=== PATIENT | male | born 1945 | race Caucasian/White ===

== ENCOUNTER 2022-04-23 20:11 | Inpatient (IN) | payer OTHER ==
[~2022-04-23] VITALS: Ht 190.5 cm; Wt 112.0 kg
[~2022-04-23 20:11] MED LIST: BACITO TOP; Flomax0.4 MG PO; Neurontin 100100 MG PO; Roxicodone5 MG PO
[2022-04-23 22:39] LABS: BASOPHILS ABSOLUTE AUTO 0.04 K/mm3 (0.00-0.23); BASOPHILS PERCENT AUTO 0 % (0-2); EOSINOPHILS ABSOLUTE AUTO 0.08 K/mm3 (0.00-0.68); EOSINOPHILS PERCENT AUTO 1 % (0-6); Hematocrit 32.6 % (37.0-53.0); Hemoglobin 11.4 g/dL (13.5-17.5); IMMATURE GRAN ABSOLUTE AUTO 0.06 K/mm3 (0.00-0.10); IMMATURE GRAN PERCENT AUTO 1 % (0-1); LYMPHOCYTES ABSOLUTE AUTO 0.84 K/mm3 (0.84-5.20); LYMPHOCYTES PERCENT AUTO 9 % (21-46); MONOCYTES ABSOLUTE AUTO 0.51 K/mm3 (0.16-1.47); MONOCYTES PERCENT AUTO 6 % (4-13); Mean Corpuscular HGB 30.6 pg (26.0-34.0); Mean Corpuscular Volume 88 fL (80-100); NEUTROPHILS ABSOLUTE AUTO 7.46 K/mm3 (1.96-9.15); NEUTROPHILS PERCENT AUTO 83 % (41-73); Platelet Count 246 K/mm3 (150-400); RDW Coefficient Variation 14.3 % (11.7-14.2); Red Blood Cell Count 3.72 M/mm3 (4.30-5.90); White Blood Cell Count 8.99 K/mm3 (4.00-11.30)
[2022-04-23 22:52] LABS: Albumin, Blood 3.5 g/dL (3.4-5.0); Albumin/Globulin Ratio 1.3 (0.8-1.8); Bilirubin, Total 1.2 mg/dL (0.1-1.0); Bun/Creatinine Ratio 10.9 (12.0-20.0); Calcium, Blood 8.1 mg/dL (8.5-10.1); Creatinine, Blood 0.83 mg/dL (0.60-1.20); Globulin, Blood 2.7 g/dL (2.2-4.0); Total Protein, Blood 6.2 g/dL (6.4-8.2)
[2022-04-23 23:31] LABS: Thyroid Stimulating Hormone 3.22 uIU/mL (0.360-4.800)
[2022-04-23 23:32] LABS: Source, Urine Foley catheter
[2022-04-23 23:38] LABS: Bilirubin, Urine Neg (Neg); Blood, Urine 4+ (Neg); Glucose Qualitative, Urine Neg (Neg); Ketones, Urine 1+ (Neg); Leukocyte Esterase, Urine Neg (Neg); Nitrite, Urine Neg (Neg); Protein, Urine 4+ (Neg); Specific Gravity, Urine 1.005 (1.003-1.022); Urobilinogen, Urine NORM (Normal)
[2022-04-23 23:44] LABS: Appearance, Urine Turbid (Clear); Color, Urine Red (P-Yellow)
[2022-04-23 23:45] LABS: Amorphous Heavy (0-Heavy); Bacteria Few /hpf; Red Blood Cells, Urine TNTC /hpf (0-2); Squamous Epithelial Cells Few /hpf (Few)
[2022-04-23 23:57] LABS: U Amphetamine Screen Not Detected; U Barbituate Screen Not Detected; U Benzodiazapine Screen Not Detected; U Buprenorphine Screen Not Detected; U Cannabinoids Screen Not Detected; U Cocaine Screen Not Detected; U Methadone Screen Not Detected; U Methamphetamine Screen Not Detected; U Opiates Screen Not Detected; U Oxycodone Screen Not Detected; U Phencyclidine Screen Not Detected; U Propoxyphene Screen Not Detected
[2022-04-24 03:02] LABS: Bun/Creatinine Ratio 10.3 (12.0-20.0); Calcium, Blood 7.7 mg/dL (8.5-10.1); Creatinine, Blood 0.77 mg/dL (0.60-1.20); Potassium, Blood 3.2 mmol/L (3.5-5.5)
--- NOTE | 2022-04-24 05:02 | NUR ---
ADMISSION REPORT RECIEVED FROM ER NURSE, PATIENT ARRIVED TO PCU 7. PATIENT ABLE TO SCOOT SELF OVER TO PCU BED WITH MINIMAL ASSISTANCE. PATIENT ON RA WITH O2 SAT >90%. PATIENT DENIES CHEST PAIN OR SOB. VSS. PATIENT ORIENTED TO SELF, AND IS ABLE TO STATE WHAT BUILDING WE ARE IN. UNABLE TO ANSWER ANY OTHER ORIENTATION QUESTIONS. PLEASANTLY CONFUSED. GALLARDO IN PLACE DRAINING DARK RED URINE. BED ALARM ON FOR SAFETY. CALL LIGHT IN REACH.
--- NOTE | 2022-04-24 07:12 | NUR ---
SHIFT SUMMARY GALLARDO IRRIGATED D/T CLOTTING OFF AND NOT DRAINING. ABOUT 1100 OUT IN GALLARDO. DRAINING DARK RED URINE WITH SOME CLOTS. NO OTHER CHANGES SINCE ADMISSION. BED ALARM ON. WILL REPORT TO DAY SHIFT RN.
[2022-04-24 09:25] LABS: BASOPHILS ABSOLUTE AUTO 0.01 K/mm3 (0.00-0.23); BASOPHILS PERCENT AUTO 0 % (0-2); EOSINOPHILS ABSOLUTE AUTO 0.06 K/mm3 (0.00-0.68); EOSINOPHILS PERCENT AUTO 1 % (0-6); Hematocrit 36.5 % (37.0-53.0); Hemoglobin 12.4 g/dL (13.5-17.5); IMMATURE GRAN ABSOLUTE AUTO 0.02 K/mm3 (0.00-0.10); IMMATURE GRAN PERCENT AUTO 0 % (0-1); LYMPHOCYTES ABSOLUTE AUTO 0.81 K/mm3 (0.84-5.20); LYMPHOCYTES PERCENT AUTO 12 % (21-46); MONOCYTES ABSOLUTE AUTO 0.58 K/mm3 (0.16-1.47); MONOCYTES PERCENT AUTO 8 % (4-13); Mean Corpuscular HGB 29.8 pg (26.0-34.0); Mean Corpuscular Volume 88 fL (80-100); Mean Platelet Volume 9.3 fL (9.1-12.4); NEUTROPHILS ABSOLUTE AUTO 5.57 K/mm3 (1.96-9.15); NEUTROPHILS PERCENT AUTO 79 % (41-73); Platelet Count 227 K/mm3 (150-400); RDW Coefficient Variation 14.2 % (11.7-14.2); RDW Standard Deviation 45.9 fL (35.1-46.3); Red Blood Cell Count 4.16 M/mm3 (4.30-5.90); White Blood Cell Count 7.05 K/mm3 (4.00-11.30)
[2022-04-24] MEDS ORDERED: ALBU90OI INH (09:27)
[2022-04-24] MEDS ORDERED: LACT PO (09:29)
[2022-04-24] MEDS ORDERED: STIOLTO RESPIMAT4 G1 INH (09:29)
[2022-04-24 09:45] LABS: Albumin, Blood 3.4 g/dL (3.4-5.0); Albumin/Globulin Ratio 1.1 (0.8-1.8); Bun/Creatinine Ratio 10.9 (12.0-20.0); Calcium, Blood 8.6 mg/dL (8.5-10.1); Creatinine, Blood 0.74 mg/dL (0.60-1.20); Potassium, Blood 3.9 mmol/L (3.5-5.5); Total Protein, Blood 6.4 g/dL (6.4-8.2)
[2022-04-24] MEDS ORDERED: ALFU10 PO (11:32)
[2022-04-24 15:26] LABS: Bun/Creatinine Ratio 12.2 (12.0-20.0); Calcium, Blood 8.7 mg/dL (8.5-10.1); Creatinine, Blood 0.82 mg/dL (0.60-1.20); Potassium, Blood 4.1 mmol/L (3.5-5.5)
[2022-04-24 16:19] LABS: Hematocrit 36.8 % (37.0-53.0); Hemoglobin 12.2 g/dL (13.5-17.5)
--- NOTE | 2022-04-24 16:32 | NUR ---
END OF SHIFT SUMMARY: PATIENT HAS BEEN IMPROVING IN MENTATION, CURRELNTY 3 MOST OF THE TIME, CAN BE SLIGHTLY IMPULSIVE AND FORGETFUL, IS ABLE TO MAKE NEEDS KNOWN. DENIES CHEST PAIN OR PRESSURE HR CURRNELTY 80-90'S NO SIGN OF ACUTE DISTRESS. PATIENT HAS BEEN ON RA WITH SPO2 >97% OF NOTE PATIENT HAD THEIR URINARY CATHETER CLOT AND WAS REPLACED, UNABLE TO INSERT THE ONLY [address] IN THE HOSPITAL DUE TO SIZE AND ANATOMY. PATIENT TOLERATED WELL. PATIENT HAS BEEN RECIEVING IRRIGATION OF 50-100mL Q1 OR PRN FROM THIS RN AFTER. PATIENT WITH LARGE OUTPUT THAT IS STILL VERY DARK RED. PATIENT HAS BEEN PLESANT. REGULAR DIET. HOME MEDICATIONS RECONCILLED WITH . WILL CONTINUE TO MONITOR UNTIL SHIFT SUMMARY. NO SIGN OF ACUTE RESPIRATORY DISTRESS. H
[2022-04-24 21:16] LABS: Bun/Creatinine Ratio 11.8 (12.0-20.0); Calcium, Blood 8.3 mg/dL (8.5-10.1); Creatinine, Blood 0.76 mg/dL (0.60-1.20); Potassium, Blood 3.8 mmol/L (3.5-5.5)
--- NOTE | 2022-04-24 23:16 | NUR ---
UPDATE CALL PLACED TO RESIDENT REGARDING AMOUNT OF BLOOD/CLOTS COMING FROM GALLARDO. IRRIGATIONS BEING DONE Q45 MINUTES TO Q1 HR. GALLARDO CONTINUES TO GET CLOGGED WITH CLOTS ALMOST IMMEDIATELY AFTER IRRIGATION IS COMPLETE. 3 WAY GALLARDO ATTEMPTED ON DAY SHIFT BUT D/T PATIENT'S ANATOMY, 3 WAY INSERTION NOT POSSIBLE AT THIS TIME. PER RESIDENT, BECAUSE PATIENT IS HEMODYNAMICALLY STABLE, PATIENT IS NOT A CANIDATE FOR EMERGENCY TRANSFER FOR UROLOGY TO PLACE GALLARDO. ORDERS FOR INCREASED DOSE OF TAMSULOSIN, AND ADDITIONAL LAB DRAWS FOR HGB/HCT. VITALS STABLE AT THIS TIME.
--- NOTE | 2022-04-24 23:36 | NUR ---
UPDATE CALL PLACED TO ALICIA VASQUEZ WITH UPDATE AND CONCERNS IN PREVIOUS NOTE. NO NEW ORDERS RECIEVED. PLAN IS TO CONTINUE TO IRRIGATE Q1, MONITOR VITAL SIGNS AND WATCH H/H.
[2022-04-24 23:56] LABS: Hematocrit 32.3 % (37.0-53.0); Hemoglobin 11.1 g/dL (13.5-17.5)
[2022-04-25 03:54] LABS: Hematocrit 31.9 % (37.0-53.0); Hemoglobin 10.5 g/dL (13.5-17.5)
[2022-04-25 04:17] LABS: Bun/Creatinine Ratio 11.8 (12.0-20.0); Calcium, Blood 8.7 mg/dL (8.5-10.1); Creatinine, Blood 0.85 mg/dL (0.60-1.20); Potassium, Blood 3.5 mmol/L (3.5-5.5)
--- NOTE | 2022-04-25 06:36 | NUR ---
SHIFT SUMMARY PATIENT ALERT, ORIENTED x2-3, MENTATION IS IMPROVING SINCE ADMISSION. VSS, PATIENT REMAINS ON RA WITH O2 SAT >90%. GALLARDO REMAINS IN PLACE DRAINING DARK RED BLOOD/URINE WITH CLOTS. [id number] IRRIGATION BEING COMPLETED. LIQUID IN GALLARDO DRAINAGE BAG LIGHT CRANBERRY JUICE DURING IRRIGATION, NEVER GETS FULLY CLEAR. PATIENT VERY FRUSTRATED WITH THIS RN, D/T NOT BEING ABLE TO GET REST/SLEEP AND STAFF CONSTANTLY IN HIS ROOM. PATIENT PULLED OUT 2 IVs AND RIPPED OFF TELE AT ONE POINT STATING "I'M GOING TO LEAVE, I'M TIRED OF BEING TANGLED UP IN ALL THESE WIRES AND I PULLED THEM OFF". ICU FOOD AND BEVERAGE ASSISTANT ATTEMPTED TO PLACE POWERGLIDE BUT WAS UNSUCCESSFUL. SEE PREVIOUS NOTES FOR UPDATES/CONCERNS. NO OTHER CHANGES THIS SHIFT, WILL REPORT TO DAY SHIFT RN.
[2022-04-25 08:22] LABS: Hematocrit 31.8 % (37.0-53.0); Hemoglobin 10.6 g/dL (13.5-17.5); Mean Corpuscular HGB 30.5 pg (26.0-34.0); Mean Corpuscular HGB Conc 33.3 g/dL (31.5-36.5); Mean Corpuscular Volume 91 fL (80-100); Mean Platelet Volume 9.3 fL (9.1-12.4); Platelet Count 282 K/mm3 (150-400); RDW Coefficient Variation 15.1 % (11.7-14.2); RDW Standard Deviation 50.6 fL (35.1-46.3); Red Blood Cell Count 3.48 M/mm3 (4.30-5.90); White Blood Cell Count 11.86 K/mm3 (4.00-11.30)
[2022-04-25 08:33] LABS: International Normalized Ratio 1.09; Prothrombin Time Results 11.4 Sec (9.7-11.5)
[2022-04-25 08:42] LABS: Bun/Creatinine Ratio 12.2 (12.0-20.0); Calcium, Blood 8.7 mg/dL (8.5-10.1); Creatinine, Blood 0.98 mg/dL (0.60-1.20); Potassium, Blood 3.8 mmol/L (3.5-5.5)
[2022-04-25] MEDS ORDERED: MIRALAX11910 PO (14:32)
--- NOTE | 2022-04-25 18:26 | NUR ---
END OF SHIFT: PATIENT HAS BEEN AFEBRILE, DENIES PAIN, MENTATION HAS BEEN MORE PLEASANT AND LESS ANXIOUS TODAY. PATIENT DENIES CHEST PAIN/PRESSURE, OR SOB. PATIENT HAS BEEN ON RA SPO2>94%. PATIENT HAS A ST POWERGLIDE IN THE LEFT UPPER ARM. PLACED BY SENIOR [employer] PROGRAMMER. PATIENT HAS BEEN RECIEVING LR X 1 DAY AT 150. PATIENT DID HAVE AN INFILTRATION TO THE GORGE, SWELLING HAS REDUCED SIGNIFICANTLY REMOVAL. PATIENT HAS BEEN HAVING A VERY LARGE AMOUNT OF DARK RED BLOOD AND CLOTS OUT OF HIS GALLARDO CATHETER UNTIL THIS EVENING AROUND 1700. PATIENT CATHETER IRRIGATION HAS BEEN LESSENING THE AMOUNT OF CLOTS AND DECREASED REDNESS. IN TOTAL PATIENT HAD 5.5L OF BLADDER IRRIGATION FROM THIS RN. PATIENT RECIEVED Q2 IRRIGATIONS IF NOT SOONER. PATIENT HAD SOFTER BLOOD PRESSURES FIRST THING THIS MORNING. H&H STABLE AT THIS TIME AT UPPER 10'S CHETNA IN THE MORNING PER PROVIDER. HOME INHALERS ADDED TO MED LIST. PATIENT IN BETTER MOOD TODAY. NO CONCERNS FROM THIS RN AT THIS TIME. WILL CONTINUE TO MONITOR UNTIL SHIFT CHANGE.
[2022-04-26 04:37] LABS: Hematocrit 26.1 % (37.0-53.0); Hemoglobin 8.4 g/dL (13.5-17.5); Mean Corpuscular HGB 29.9 pg (26.0-34.0); Mean Corpuscular HGB Conc 32.2 g/dL (31.5-36.5); Mean Corpuscular Volume 93 fL (80-100); Mean Platelet Volume 9.6 fL (9.1-12.4); Platelet Count 219 K/mm3 (150-400); RDW Coefficient Variation 15.2 % (11.7-14.2); RDW Standard Deviation 51.8 fL (35.1-46.3); Red Blood Cell Count 2.81 M/mm3 (4.30-5.90); White Blood Cell Count 8.71 K/mm3 (4.00-11.30)
[2022-04-26 04:56] LABS: Bun/Creatinine Ratio 9.9 (12.0-20.0); Calcium, Blood 7.9 mg/dL (8.5-10.1); Creatinine, Blood 0.91 mg/dL (0.60-1.20); Potassium, Blood 3.7 mmol/L (3.5-5.5)
--- NOTE | 2022-04-26 06:06 | NUR ---
SHIFT SUMMARY PATIENT ALERT, ANSWERS QUESTIONS APPROPRIATELY BUT CAN BE FORGETFUL AT TIMES. VSS, PATIENT REMAINS ON RA WITH O2 SAT >90%. PATIENT CONTINUES TO DENY CHEST PAIN OR SHORTNESS OF BREATH. GALLARDO IN PLACE DRAINKING PINK TINGED OUTPUT. INTERMITTENT IRRIGATION DONE OVER THE NIGHT, AND MINIMAL CLOTS ARE DRAINING DURING IRRIGATION. GALLARDO IS ABLE TO FREE FLOW, CHECKED APPROXIMATELY Q2 D/T SUCH IMPROVEMENT SINCE PREVIOUS SHIFTS. NO OTHER SIGNIFICANT CHANGES THIS, WILL REPORT TO DAY SHIFT RN.
[2022-04-26 12:28] LABS: Hematocrit 25.6 % (37.0-53.0); Hemoglobin 8.4 g/dL (13.5-17.5)
[2022-04-26] MEDS ORDERED: Calcium Carbon500 MG PO (14:17)
--- NOTE | 2022-04-26 19:28 | NUR ---
DISCHARGE SUMMARY: PATIENT HAS BEEN THE MOST ALERT AND ORIENTED HE HAS BEEN SINCE ASSUMPTION OF THIS PATINET. PATIENT DENIES CHEST PAIN OR SOB AT REST OR WITH EXERTION. PATIENT IS ON RA DWANNELTY HAS A GALLARDO AND WILL BE DCISCHARGE WITH A GALLARDO TO PREVENT FURTHER TRAUMA WITH SELF CATHING. PATIENT AND WERE EDUCATED ON DISEASE PROCESS, TECHNIQUES, CARE, AND SIGNS OF INFECTION FOR > THAN 60 MINUTES. PATIENT WAS WHEELED OUT BY [facility] VIA WHEELCHAIR. POWERGLIDE WAS REMOVED FROM THE LEFT UPPER ARM, NO COMPLICATIONS IV IN TACT. PATIENT HASNO CONCERNS WILL AT THIS TIME
== END 2022-04-26 17:07 | disposition home or self-care (01) | DRG 640 ==
LOC: ER 20:11 → ERHOLD 04-24 03:45 → PCU 04-24 03:45
PROVIDERS: Emergency Medicine; Internal Medicine; Student in an Organized Health Care Education/Training Program; ADMIT Internal Medicine
DX: E87.1 Hypo-osmolality and hyponatremia (principal); G92.8 Other toxic encephalopathy; T83.83XA Hemorrhage due to genitourinary prosthetic devices, implants and grafts, initial encounter; I10 Essential (primary) hypertension; E03.9 Hypothyroidism, unspecified; I48.91 Unspecified atrial fibrillation; E86.1 Hypovolemia; N40.0 Benign prostatic hyperplasia without lower urinary tract symptoms; E87.8 Other disorders of electrolyte and fluid balance, not elsewhere classified; R31.9 Hematuria, unspecified; Z79.899 Other long term (current) drug therapy; Y84.6 Urinary catheterization as the cause of abnormal reaction of the patient, or of later complication, without mention of misadventure at the time of the procedure
CPT/HCPCS: 36415; 51700; 51702; 51703; 70450; 74176; 80048; 80053; 81001; 82947; 83880; 83930; 84443; 84484; 85014; 85018; 85025; 85027; 85610; 86850; 86900; 86901; 87077; 87086; 87186; 93005; 93010; 94640; 94664; 94760; 96361-59; 96374-59; 99285-25; A9270; C1751; J2060; J2405; J3480; J7030; J7050; J7120

== ENCOUNTER 2022-04-27 00:33 | Emergency (ER) | payer OTHER ==
[~2022-04-27] VITALS: Ht 190.5 cm; Wt 102.1 kg
[~2022-04-27 00:33] MED LIST changes: +ALBU90OI INH; +ALFU10 PO; +Calcium Carbon500 MG PO; +LACT PO; +MIRALAX11910 PO; +STIOLTO RESPIMAT4 G1 INH
[2022-04-27 01:45] LABS: Source, Urine Foley catheter
[2022-04-27 02:15] LABS: Appearance, Urine Hazy (Clear); Bilirubin, Urine Neg (Neg); Blood, Urine 5+ (Neg); Color, Urine Yellow (P-Yellow); Glucose Qualitative, Urine Neg (Neg); Ketones, Urine Neg (Neg); Leukocyte Esterase, Urine 3+ (Neg); Nitrite, Urine Neg (Neg); Protein, Urine 2+ (Neg); Urobilinogen, Urine NORM (Normal)
[2022-04-27 02:38] LABS: Bacteria Many /hpf; Squamous Epithelial Cells Rare /hpf (Few)
== END 2022-04-27 03:28 | disposition home or self-care (01) ==
LOC: ER 00:33
PROVIDERS: Emergency Medicine
DX: T83.091A Other mechanical complication of indwelling urethral catheter, initial encounter (principal); Y84.6 Urinary catheterization as the cause of abnormal reaction of the patient, or of later complication, without mention of misadventure at the time of the procedure; N32.89 Other specified disorders of bladder
CPT/HCPCS: 51702; 51798; 81001; 87077; 87086; 87186; 99283-25

== ENCOUNTER 2022-06-25 11:57 | Inpatient (IN) | payer OTHER ==
[~2022-06-25] VITALS: Ht 188 cm; Wt 110.5 kg
[2022-06-25 12:45] LABS: BASOPHILS ABSOLUTE AUTO 0.03 K/mm3 (0.00-0.23); BASOPHILS PERCENT AUTO 0 % (0-2); EOSINOPHILS ABSOLUTE AUTO 0.01 K/mm3 (0.00-0.68); EOSINOPHILS PERCENT AUTO 0 % (0-6); Hematocrit 33.8 % (37.0-53.0); Hemoglobin 11.2 g/dL (13.5-17.5); IMMATURE GRAN ABSOLUTE AUTO 0.07 K/mm3 (0.00-0.10); IMMATURE GRAN PERCENT AUTO 0 % (0-1); LYMPHOCYTES ABSOLUTE AUTO 0.58 K/mm3 (0.84-5.20); LYMPHOCYTES PERCENT AUTO 3 % (21-46); MONOCYTES ABSOLUTE AUTO 0.94 K/mm3 (0.16-1.47); MONOCYTES PERCENT AUTO 5 % (4-13); Mean Corpuscular HGB 27.1 pg (26.0-34.0); Mean Corpuscular HGB Conc 33.1 g/dL (31.5-36.5); Mean Corpuscular Volume 82 fL (80-100); Mean Platelet Volume 9.4 fL (9.1-12.4); NEUTROPHILS PERCENT AUTO 91 % (41-73); Platelet Count 309 K/mm3 (150-400); RDW Coefficient Variation 14.3 % (11.7-14.2); RDW Standard Deviation 42.9 fL (35.1-46.3); Red Blood Cell Count 4.13 M/mm3 (4.30-5.90); White Blood Cell Count 18.73 K/mm3 (4.00-11.30)
[2022-06-25 13:01] LABS: Albumin, Blood 3.5 g/dL (3.4-5.0); Bilirubin, Total 1.2 mg/dL (0.1-1.0); Bun/Creatinine Ratio 15.2 (12.0-20.0); Calcium, Blood 8.3 mg/dL (8.5-10.1); Creatinine, Blood 0.99 mg/dL (0.60-1.20); Globulin, Blood 3.5 g/dL (2.2-4.0)
[2022-06-25 15:28] LABS: Source, Urine Clean Catch
[2022-06-25 15:39] LABS: Appearance, Urine Hazy (Clear); Bilirubin, Urine Neg (Neg); Blood, Urine 5+ (Neg); Color, Urine Yellow (P-Yellow); Glucose Qualitative, Urine Neg (Neg); Ketones, Urine 1+ (Neg); Leukocyte Esterase, Urine 3+ (Neg); Nitrite, Urine Neg (Neg); Protein, Urine 2+ (Neg); Urobilinogen, Urine NORM (Normal)
[2022-06-25 15:53] LABS: Bacteria Many /hpf; Hyaline Casts 0-2 /lpf (0-2); Squamous Epithelial Cells Rare /hpf (Few); White Blood Cells, Urine 25-50 /hpf (0-5)
[2022-06-25 16:51] LABS: Calcium, Blood 7.9 mg/dL (8.5-10.1); Potassium, Blood 4.2 mmol/L (3.5-5.5)
--- NOTE | 2022-06-25 16:56 | NUR ---
REPORT RECIEVED FROM DECLAN MCGINNIS AT 1649.
[2022-06-25 18:10] LABS: U Amphetamine Screen Not Detected; U Barbituate Screen Not Detected; U Benzodiazapine Screen Not Detected; U Buprenorphine Screen Not Detected; U Cannabinoids Screen Not Detected; U Cocaine Screen Not Detected; U Methadone Screen Not Detected; U Methamphetamine Screen Not Detected; U Opiates Screen Not Detected; U Oxycodone Screen Not Detected; U Phencyclidine Screen Not Detected; U Propoxyphene Screen Not Detected
--- NOTE | 2022-06-25 19:31 | NUR ---
PT ARRIVED TO PCU AT 1715 VIA HOSPITAL BED AND ON 2LNC. PT TITRATED OFF OF O2, SATS REMAIN IN THE 90'S. PT OBTUNDED UPON ARRIVAL, AWAKENS BRIEFLY FOR QUESTIONS AND QUICKLY FALLS ASLEEP. WHEN AWAKE, PT REDIRECTABLE AND FOLLOWING COMMANDS. PT BELIEVES HE "FELL OUT OF BED AND COULD NOT GET BACK INTO BED." VSS UPON ARRIVAL TO UNIT. WHEN AWAKE, NO REPORT OF CHEST PAIN/PRESSURE OR SOB/DYSPNEA. PT HAS A GALLARDO IN PLACE THAT WAS PLACED IN THE ER. PT NOTED TO HAVE APNEIC PERIODS WHEN SLEEPING, DR NOTIFIED AND CPAP ORDERED.
[2022-06-25 20:08] LABS: Bun/Creatinine Ratio 16.8 (12.0-20.0); Calcium, Blood 8.6 mg/dL (8.5-10.1); Creatinine, Blood 0.89 mg/dL (0.60-1.20); Potassium, Blood 3.7 mmol/L (3.5-5.5)
[2022-06-26 00:11] LABS: Bun/Creatinine Ratio 17.9 (12.0-20.0); Calcium, Blood 8.3 mg/dL (8.5-10.1); Creatinine, Blood 0.9 mg/dL (0.60-1.20); Potassium, Blood 3.9 mmol/L (3.5-5.5)
--- NOTE | 2022-06-26 01:10 | NUR ---
UPDATE THIS RN CALLED RESIDENT AROUND 2200 TO NOTIFY OF INCREASED/LARGE AMOUNT OF URINE OUPUT SINCE ADMIT WELL SHIFT CHANGE. SEE I&0'S NOTES. ALSO NOTFIED OF SODIUM LABS. NO NEW ORDERS AT THIS TIME; WANTS TO WATCH LABS AND MONITOR PT. DID NOT WANT ANY CONSULTATIONS ON BOARD AT THIS TIME. 0100; THIS RN CALLED TO UPDATE RESIDENT ON MOST RECENT SODIUM LEVEL. NO NEW ORDERS.
[2022-06-26 04:32] LABS: BASOPHILS ABSOLUTE AUTO 0.01 K/mm3 (0.00-0.23); BASOPHILS PERCENT AUTO 0 % (0-2); EOSINOPHILS PERCENT AUTO 0 % (0-6); Hematocrit 34.7 % (37.0-53.0); Hemoglobin 11.5 g/dL (13.5-17.5); IMMATURE GRAN ABSOLUTE AUTO 0.07 K/mm3 (0.00-0.10); IMMATURE GRAN PERCENT AUTO 1 % (0-1); LYMPHOCYTES ABSOLUTE AUTO 1.21 K/mm3 (0.84-5.20); LYMPHOCYTES PERCENT AUTO 11 % (21-46); MONOCYTES ABSOLUTE AUTO 0.81 K/mm3 (0.16-1.47); MONOCYTES PERCENT AUTO 7 % (4-13); Mean Corpuscular HGB 27.1 pg (26.0-34.0); Mean Corpuscular HGB Conc 33.1 g/dL (31.5-36.5); Mean Corpuscular Volume 82 fL (80-100); Mean Platelet Volume 8.9 fL (9.1-12.4); NEUTROPHILS PERCENT AUTO 81 % (41-73); Platelet Count 308 K/mm3 (150-400); RDW Coefficient Variation 14.6 % (11.7-14.2); RDW Standard Deviation 43.2 fL (35.1-46.3); Red Blood Cell Count 4.25 M/mm3 (4.30-5.90)
[2022-06-26 04:48] LABS: Adenovirus Not Detected (NOT DETECT); Coronavirus 229E Not Detected (NOT DETECT); Coronavirus HKU1 Not Detected (NOT DETECT); Coronavirus NL63 Not Detected (NOT DETECT)
[2022-06-26 04:49] LABS: Bordetella pertussis Not Detected (NOT DETECT); Chlamydophila pneumoniae Not Detected (NOT DETECT); Coronavirus OC43 Not Detected (NOT DETECT); Human Metapneumovirus Not Detected (NOT DETECT); Human Rhinovirus/Enterovirus Not Detected (NOT DETECT); Influenza A/2009-H1 Not Detected (NOT DETECT); Influenza A/H1 Not Detected (NOT DETECT); Influenza A/H3 Not Detected (NOT DETECT); Influenza B Not Detected (NOT DETECT); Mycoplasma pneumoniae Not Detected (NOT DETECT); Parainfluenza Virus 1 Not Detected (NOT DETECT); Parainfluenza Virus 2 Not Detected (NOT DETECT); Parainfluenza Virus 3 Not Detected (NOT DETECT); Parainfluenza Virus 4 Not Detected (NOT DETECT); Respiratory Syncytial Virus Not Detected (NOT DETECT); SARS-Cov-2 (COVID-19), BioFire Not Detected (NOT DETECT)
[2022-06-26 04:53] LABS: Albumin, Blood 3.4 g/dL (3.4-5.0); Bilirubin, Total 0.6 mg/dL (0.1-1.0); Calcium, Blood 8.7 mg/dL (8.5-10.1); Creatinine, Blood 0.94 mg/dL (0.60-1.20); Globulin, Blood 3.4 g/dL (2.2-4.0); Potassium, Blood 3.8 mmol/L (3.5-5.5); Total Protein, Blood 6.8 g/dL (6.4-8.2)
--- NOTE | 2022-06-26 06:18 | NUR ---
SHIFT SUMMARY PT LETHARGIC, BUT RESPONSIVE TO VERBAL STIMULI. PT ANSWERING QUESTIONS APPROPRIATELY; A&O TO SELF, PERSON, PLACE, TIME BUT CONFUSED AND UNABLE TO RECALL EVENT/SITUATION. PT FALLS BACK TO SLEEP QUICKLY W/OUT VERBAL STIMULUS. VSS; PT OFF NC MOST OF SHIFT, BUT 2 L PLACED BACK ON PT DUE TO TWO EPISODES OF PT 02 SATS DECREASING TO 75% WHILE SLEEPING. PT NPO. GALLARDO IN PLACE AND DRAINING TO GRAVITY. URINE IS LIGHT YELLOW IN COLOR AND PT HAS LARGE AMOUNT OF OUTPUT; SEE I&O'S. Q4 NEURO CHECKS COMPLETED; NO CHANGES THROUGHOUT. NEURO SEEMS TO BE IMPROVING. PT REPOSITIONED INDEPENDENTLY BUT ALSO ASSISTED W/BOOSTS AND REMINDING PT TO REPOSITION. NO OTHER CHANGES THROUGHOUT SHIFT. SODIUM LEVELS BEING MONITORED; SEE LABS. ALSO SEE NURSING NOTE WTIH UPDATE TO PROVIDER. NO NEW ORDERS OR CHANGES RELATED TO SODIUM LEVELS. PT NOT YET USING CALL LIGHT BUT THIS RN EDUCATED PT ABOUT USE AND IMPORTANCE. CALL LIGHT IN REACH. PT IS ABLE TO VERBALIZE NEEDS WHEN ROUNDING DONE
--- NOTE | 2022-06-26 18:03 | NUR ---
SHIFT SUMMARY PT A/OX3-4 THIS AM, PT MORE ALERT COMPARED TO YESTERDAY. PT BECAME A/OX4 BY 1200, ABLE TO ANSWER ORIENTATION QUESTIONS PROMPTLY, APPROPIATLEY, AND ACCURATE. PT ABLE TO EXPRESS NEEDS. VSS THROUGHOUT SHIFT WITH 02 SATS IN THE 90'S ON RA. NO REPORT OF CHEST PAIN/PRESSURE THROUGHOUT SHIFT. NO REPORT OF SOB/DYPNEA THROUGHOUT SHIFT. PT SEEN BY [facility]ERAP[facility] TODAY, SEE THERAPIST NOTES. PT UP TO KIAN ROSE, TOLERATED WELL. PT EXPRESSED THAT HE IS EAGER TO GO HOME TOMORROW. PT REPORTED THAT HIS SODIUM LEVELS WERE LOW LIKE THIS "JUST A FEW MONTHS AGO." PT HAS GALLARDO IN PLACE DRAINING TO GRAVITY, YELLOW URINE.
--- NOTE | 2022-06-27 00:20 | NUR ---
UPDATE PT REPORTS PRESSURE IN BLADDER AREA, SCANT AMOUNT OF BLOOD SEEN ON ATTENDS. POSSIBLE THAT PT SLIGHTLY PULLED CATHETER WHEN GETTING UP TO USE BATHROOM. PT REPORTS HX OF BLOOD CLOTS AND BLEEDING AT HOME WHEN HE STRAIGHT CATHS SELF. IRRIGATION COMPLETED, FLUSHED AND PULLED BACK WELL, URINE COLOR NOTED. NO BLOCKAGES OR CLOTS NOTED. PT STARTED DRAINING LARGE AMOUNT OF URINE, AND MENTATION CHANGE NOTED. PT UNABLE TO RECALL PLACE, SITUATION AND 'S NAME. PREVIOUSLY A&O X4. BP SOFT; 113/54 (72). THIS RN CALLED RESIDENT TO NOTIFY OF CHANGE. BLOOD SODIUM LAB ORDERED. SODIUM AT 135. PT ALSO PASSED LARGE BM; DARK BLACKISH IN COLOR AND TARRY LOOKING. PT DENIES SYMPTOMS, DENIES HX OF THIS. RESIDENT NOTIFIED. NEW ORDERS FOR OCCULT STOOL SAMPLE. SAMPLE COLLECTED AND SENT TO LAB
[2022-06-27 00:40] LABS: Stool Occult Blood Guaiac 1 Neg (Neg)
[2022-06-27 04:24] LABS: BASOPHILS ABSOLUTE AUTO 0.04 K/mm3 (0.00-0.23); BASOPHILS PERCENT AUTO 0 % (0-2); EOSINOPHILS ABSOLUTE AUTO 0.11 K/mm3 (0.00-0.68); EOSINOPHILS PERCENT AUTO 1 % (0-6); Hematocrit 32.4 % (37.0-53.0); Hemoglobin 10.6 g/dL (13.5-17.5); IMMATURE GRAN ABSOLUTE AUTO 0.05 K/mm3 (0.00-0.10); IMMATURE GRAN PERCENT AUTO 0 % (0-1); LYMPHOCYTES ABSOLUTE AUTO 1.37 K/mm3 (0.84-5.20); LYMPHOCYTES PERCENT AUTO 12 % (21-46); MONOCYTES ABSOLUTE AUTO 1.21 K/mm3 (0.16-1.47); MONOCYTES PERCENT AUTO 11 % (4-13); Mean Corpuscular HGB 27.2 pg (26.0-34.0); Mean Corpuscular HGB Conc 32.7 g/dL (31.5-36.5); Mean Corpuscular Volume 83 fL (80-100); Mean Platelet Volume 9.5 fL (9.1-12.4); NEUTROPHILS ABSOLUTE AUTO 8.53 K/mm3 (1.96-9.15); NEUTROPHILS PERCENT AUTO 75 % (41-73); Platelet Count 291 K/mm3 (150-400); RDW Coefficient Variation 14.6 % (11.7-14.2); RDW Standard Deviation 44.8 fL (35.1-46.3); Red Blood Cell Count 3.89 M/mm3 (4.30-5.90); White Blood Cell Count 11.31 K/mm3 (4.00-11.30)
[2022-06-27 04:50] LABS: Albumin, Blood 3.1 g/dL (3.4-5.0); Albumin/Globulin Ratio 0.9 (0.8-1.8); Bilirubin, Total 0.5 mg/dL (0.1-1.0); Bun/Creatinine Ratio 16.5 (12.0-20.0); Calcium, Blood 8.4 mg/dL (8.5-10.1); Creatinine, Blood 0.73 mg/dL (0.60-1.20); Globulin, Blood 3.3 g/dL (2.2-4.0); Potassium, Blood 3.7 mmol/L (3.5-5.5); Total Protein, Blood 6.4 g/dL (6.4-8.2)
--- NOTE | 2022-06-27 06:07 | NUR ---
SHIFT SUMMARY PT A&O X 3-4. PT AWAKE AND INTERACTING WITH THIS RN. RESPONDING TO QUESTIONS APPROPRIATELY. PT UP WITH FWW AND SUPERVISION TO USE BATHROOM. PT DID WILL, BUT NEEDS REMINDERS TO TAKE IT SLOW. PT HAD A LARGE BM TODAY; WAS SOFT, UNFORMED BLACKISH IN COLOR. HAD A TAR/IRIS LIKE TEXTURE. PROVIDER NOTIFIED, STOOL SAMPLE TAKEN; NEGATIVE FOR BLOOD. SEE NURSING NOTE ABOUT THIS. GALLARDO IN PLACE DRAINING TO GRAVITY, LIGHT YELLOW URINE. AT ONE POINT DURING SHIFT, PT HAD A SLIGHT MENTATION CHANGE AND WAS DRAINING A LARGE AMOUNT OF URINE. PROVIDER NOTIFIED, LAB FOR SODIUM LEVEL ORDERED. SEE NURSING NOTE ABOUT THIS. PT IS NOW BACK TO BEING A&O X3 BUT SEEMS TO BE MORE TIRED THAN EARLIER IN THE SHIFT. WHILE SLEEPING PT HAD SOME EPISODES OF HR DROPPING INTO 40'S - 50'S, BUT DID NOT SUSTAIN. PT ALSO HAD 2 EPISODES OF DESTAURATION WHILE SLEEPING; 2 L VIA NC PLACED ON PT. O2 SATS MAINTAINING >96%. CALL LIGHT IN REACH AND PT IS CALLING APPROPRIATELY.
[2022-06-27 09:56] LABS: Percent Saturation 7.8 % (20.0-50.0)
[2022-06-27] MEDS ORDERED: PROBIOTIC1 EA13 PO (11:34)
[2022-06-27] MEDS ORDERED: CEPH500 PO (11:35)
--- NOTE | 2022-06-27 13:03 | NUR ---
DISCHARGE: PT HAS BEEN CLEARED FOR DISCHARGE. INDWELLING GALLARDO CATHETER REMOVED THIS AM APPROX 0830, PT ABLE TO SELF CATH APPROX 1130 W/ APPROX 200 ML OUTPUT. IV ACCESS HAS BEEN DC'd WNL. PT DRESSES SELF. PT AND SPOUSE PROVIDED W/DC INSTRUCTIONS AND PAPERWORK. ALL QUESTIONS HAVE BEEN ANSWERED. PT ESCORTED FROM UNIT VIA W/C W/OUT INCIDENT.
== END 2022-06-27 12:54 | disposition home health service (06) | DRG 91 ==
LOC: ER 11:57 → ERHOLD 15:55 → PCU 17:12
PROVIDERS: Emergency Medicine; Family Medicine; ADMIT Internal Medicine
DX: G92.8 Other toxic encephalopathy (principal); J18.9 Pneumonia, unspecified organism; J96.01 Acute respiratory failure with hypoxia; E22.2 Syndrome of inappropriate secretion of antidiuretic hormone; N13.8 Other obstructive and reflux uropathy; N39.0 Urinary tract infection, site not specified; N40.1 Benign prostatic hyperplasia with lower urinary tract symptoms; E03.9 Hypothyroidism, unspecified; R91.1 Solitary pulmonary nodule; I48.91 Unspecified atrial fibrillation; I10 Essential (primary) hypertension; R33.8 Other retention of urine; E86.1 Hypovolemia; N32.89 Other specified disorders of bladder; B96.1 Klebsiella pneumoniae [K. pneumoniae] as the cause of diseases classified elsewhere; B95.2 Enterococcus as the cause of diseases classified elsewhere; S00.81XA Abrasion of other part of head, initial encounter; S51.012A Laceration without foreign body of left elbow, initial encounter; S90.811A Abrasion, right foot, initial encounter; Z20.822 Contact with and (suspected) exposure to COVID-19; W19.XXXA Unspecified fall, initial encounter; Z79.51 Long term (current) use of inhaled steroids; Z98.890 Other specified postprocedural states; Z87.891 Personal history of nicotine dependence; Z79.899 Other long term (current) drug therapy
CPT/HCPCS: 0202U; 36415; 51702; 51798; 70450; 71045; 71260; 72125; 80048; 80053; 81001; 82272; 82728; 83540; 83550; 83930; 83935; 84145; 84295; 84443; 85025; 87077; 87086; 87186; 93005; 93010; 94762; 97162; 97530; A9270; J0456; J0696; J2060; J7050; Q9967